=== PATIENT | male | born 1995 | race Asian ===

== ENCOUNTER 2024-07-26 21:55 | Emergency (ER) | payer OTHER, SELFPAY ==
[2024-07-26 22:10] VITALS: BP 133/82; PULSE 94; RESP 18; TEMP 36.8; O2SAT 98; BMI 22.7
[2024-07-27] MEDS: timoloL maleate 0.5 % Oph Sol 5 ML DRBTL 1 DROP EYE-RIGHT (01:11)
[2024-07-27] MEDS: Apraclonidine HCl 1 % Oph Sol 1 EACH DROPERETTE 1 DROP EYE-RIGHT (01:12)
--- NOTE | 2024-07-27 01:15 | PC.NURSE ---
Patient medicated per MAR.
[2024-07-27 01:28] VITALS: BP 124/83; PULSE 96; RESP 24; TEMP 35.9; O2SAT 96
[2024-07-27 02:00] VITALS: BP 125/83; PULSE 81; RESP 22; TEMP 36.6; O2SAT 98
--- NOTE | 2024-07-27 02:16 | ED_ITS ---
HPI - General Adult General Chief complaint: Eye Problems Stated complaint: right eye irritated Time Seen by Provider: 07/27/24 00:19 Source: patient, RN notes reviewed and old records reviewed Mode of arrival: ambulatory Limitations: no limitations History of Present Illness ED Provider: Eunice PINO narrative: 28-year-old male who denies any past medical history presents for evaluation of fogginess to his vision in the right eye. Patient reports that he has had intermittent episodes of flashing lights and ?halos. His symptoms seem to be worse when he was outside and better endorse He reports a very mild amount of pain, 2/10 in his scribe's it as burning He denies any trauma, falls. He wears glasses but no contacts No other complaints or concerns Related Data Allergies Allergy/AdvReac Type Severity Reaction Status Date / Time No Known Allergies Allergy Verified 07/26/24 22:13 Review of Systems Constitutional: Constitutional: Denies body ache(s), Denies chills and Denies fever(s) Eyes: Eyes: Reports blurry vision, Reports change in vision, Reports other visual disturbances, Reports eye pain, Reports requires corrective lenses, Reports seeing flashes and Reports photophobia PMFSH Social History Social History Advance Directives: No Advance Directives Information Provided: Yes Physical Exam ED Vital Signs: Vital Signs - 24 hr 07/26/24 22:10 07/27/24 01:28 07/27/24 02:00 Temperature 98.2 F 96.7 F L 97.8 F Pulse Rate 94 96 81 Respiratory Rate 18 24 H 22 H Blood Pressure 133/82 124/83 125/83 Pulse Oximetry 98 96 98 Oxygen Delivery Method Room Air Room Air Room Air BMI result Body Mass Index 22.7 Const General: healthy appearing, comfortable, no acute distress, alert and awake Nutritional Appearance: well nourished Orientation/consciousness: patient oriented x3 HENMT Head: Yes normocephalic and Yes atraumatic Eyes Visual Scherer: normal visual scherer by confrontation Alignment and Position: alignment normal Periorbital: periorbital findings normal Eyelids: Yes eyelids normal Conjunctivae: conjunctivae normal Sclerae: sclerae normal Corneas: corneas normal Pupils: Equal, round and reactive pupils present EOM: EOMs intact bilaterally Direct Ophthalmoscopy: normal light reflex, no photophobia, no papilledema, fundi normal bilaterally and photophobia Neck Neck: Yes full ROM Resp Effort & Inspection: normal respiratory effort, able to speak in complete sentences and not labored Skin General skin exam: elasticity normal Neuro General: patient oriented x3 Cranial nerves: Yes CN's II-XII intact bilaterally, Yes Equal, round and reactive pupils present and Yes Bilaterally intact EOM present Cognition (Neuro): normal cognition Extrem Other: Moving all extremities well without any obvious deformities Course Reevaluation(s) Reevaluation #1: Repeat intra-ocular pressure was 28.5 in the right eye. I rediscussed with Ophthalmology, Dr. Sexton who recommends discharging the patient with timolol 1 drop b.i.d.. He will call the patient later today to get the patient into the office for an eye exam. The patient reports he will be able to return to the ophthalmology office for an evaluation after receiving an appointment time. Time: 02:33 Medications Administered Discontinued Medications Generic Name Dose Route Start Last Admin Trade Name Freq PRN Reason Stop Dose Admin Apraclonidine HCl 1 drop 07/27/24 01:10 07/27/24 01:12 Apraclonidine Hcl 1 % Oph Kayy 1 Each Droperette EYE-RIGHT 07/27/24 01:11 1 drop ONCE ONE Administration Timolol Maleate 1 drop 07/27/24 00:54 07/27/24 01:11 Timolol Maleate 0.5 % Oph Kayy 5 Ml Drbtl EYE-RIGHT 07/27/24 00:55 1 drop ONCE ONE Administration Medical Decision Making Medical Decision Making MDM Narrative: 28-year-old male presents for evaluation of visual changes in the right eye. He reports 3 days ago he noticed a flashing light which resolved. He has not had intermittent episodes of halos when he was looking at lights. He reports minor pain. There was no trauma. The patient's visual acuity is 20/25 binocular. Is visual acuity in the left eye monocularly i is 20/40 and in the affected right eye 20/30. The patient reports that his visual acuity tends to be better in the right eye and this is his baseline. He does not have an eye doctor currently. I attempted an ultrasound of the eye that did not show any concerning findings, no large or obvious retinal detachment, vitreous hemorrhage. I checked intra- ocular pressures which was 22 mmHg on the left eye and 45-48 mmHg in the right eye. I did double check this measurement with a Radhames-Pen and got the same numbers. I then consulted Ophthalmology, Dr. Sexton who recommended 1 drop of timolol and 1 drop of Apraclonidine. He recommends rechecking the pressure after 30 minutes Differential Diagnosis Differential Diagnoses: The differential diagnosis associated with the presentation includes Glaucoma Retinal detachment Vitreous hemorrhage Iritis Admission/Observation Consideration of admission/observation: Escalation of care including admission/observation considered Discharge Plan Discharge Clinical Impression: Glaucoma Patient Disposition: Home, Self-Care Instructions: Glaucoma (ED), How to Use Eye Drops (ED) Additional Instructions: Use the timolol eye drops 1 drop twice daily to the right eye You will receive a phone call from Dr. Feroz Sexton later today for an appointment to be seen today Call his office at the number provided if you do not hear from him by 2:00pm Return for new or worsening symptoms Referrals: Feroz Sexton [Physician] - (glaucoma) Interventions: ED Discharge Assessment Last Done: 07/27/24 02:31 Print Language: [place]ian
[2024-07-27 02:31] VITALS: BP 125/83; PULSE 81; RESP 22; TEMP 36.6; O2SAT 98
--- NOTE | 2024-07-31 10:50 | MHC.EDTECH ---
DR JOSÉ OFFICE CALLS TO SAY THEY ARE UNABLE TO REACH THIS PT FOR FOLLOW UP, WITH THE PHONE NUMBER [id number]
== END 2024-07-27 02:51 | disposition home or self-care (01) ==
PROVIDERS: Emergency Provider Emergency Medicine
DX: H40.9 Unspecified glaucoma (principal); H53.8 Other visual disturbances
CPT/HCPCS: 99283; 99284